=== PATIENT | male | born 1985 | race Caucasian/White ===

== ENCOUNTER 2025-06-18 08:50 | Outpatient (CLI) | payer BC, OTHER | END 2025-06-18 08:51 | disposition home or self-care (01) | LOC: CSHSLEEP 08:50 | PROVIDERS: ATTEND Family Medicine | DX: G47.33 Obstructive sleep apnea (adult) (pediatric) (principal); G47.10 Hypersomnia, unspecified; R53.83 Other fatigue; R06.83 Snoring | CPT/HCPCS: 95811 ==